=== PATIENT | male | born 1935 | race Caucasian/White ===

== ENCOUNTER → 2016-08-03 | Outpatient (CLI) | payer MEDICARE, OTHER | END | disposition home or self-care (01) | LOC: GMAH 10:40 | PROVIDERS: ATTEND Family Medicine | DX: I69.391 Dysphagia following cerebral infarction (principal) ==

== ENCOUNTER → 2016-11-22 | Outpatient (CLI) | payer MEDICARE, OTHER ==
--- NOTE | 2016-11-25 10:52 | CT ---
EXAM DESCRIPTION: Abdoment/Pelvis w/o Contrast CLINICAL HISTORY: 81 years, 81 years, Male, Male, LUQ ABDOMEN PAIN COMPARISON: June 27, 2007 TECHNIQUE: CT of the abdomen and pelvis is performed according to our non contrast protocol This exam was performed according to our departmental dose-optimization program, which includes automated exposure control, adjustment of the mA and/or kV according to patient size and/or use of iterative reconstruction technique. FINDINGS: The lung bases are clear without infiltrate or effusion or mass. No free abdominal air is noted. The unenhanced liver is grossly normal with a small normal spleen noted and atrophic pancreas without mass evident. The gallbladder is distended with small stones layering dependently and new from previous 2007 study. No ductal dilation is noted. No adrenal mass or enlargement is evident. The right kidney is normal in appearance with a small less than 1.5 cm benign cyst lower pole of the kidney, unchanged left kidney demonstrates larger but stable parapelvic cysts in the anterior renal hilum without mass or obstruction or hydronephrosis. Aortic calcification and tortuosity is present without aneurysm and the vena cava is unremarkable without retroperitoneal adenopathy. Gastrostomy tube is positioned in the gastric body and new from 2009 examination. The stomach and small bowel are normal in appearance and mild diverticulosis of the left colon is noted with moderate prostatic hypertrophy. A specific abnormality to explain the patient's left upper quadrant or left flank pain is not apparent. The bladder is incompletely distended and appears thick-walled without a distinct focal mass. No pelvic fluid collections are noted in the anterior abdominal wall is unremarkable Advanced degenerative changes at the lumbosacral junction at the L5-S1 disc space is present with milder changes noted elsewhere. No bony destructive changes seen. IMPRESSION: 1. Cholelithiasis without ductal dilatation, new from 2010 without acute inflammation. 2. Gastrostomy tube in place and mild diverticulosis of the left colon. 3. Simple cyst lower pole of the right kidney and a larger benign parapelvic cyst of the left kidney without obstruction or stone disease. 4. Degenerative disc disease L5-S1 5. Small contracted bladder that appears thick-walled but without distinct focal mass or filling defect. Prostatic hypertrophy noted. Electronically signed by: Elvis Leblanc MD 11/25/2016 10:52 AM CDT
== END | disposition home or self-care (01) ==
LOC: CT 10:17
PROVIDERS: ATTEND Surgery
DX: R10.12 Left upper quadrant pain (principal)

== ENCOUNTER 2017-05-03 05:15 | Emergency (ER) | payer MEDICARE, OTHER ==
--- NOTE | 2017-05-03 05:42 | ED.PDOC ---
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 reports he woke her earlier this morning with significant bleeding from his mouth. They attempted to get it to stop at home but were unsuccessful. Denies any trauma or injury but does report he has been having some pain in that area for the past several days. Timing/Duration: abrupt, this morning Severity: moderate EENT Location: mouth Prearrival Treatment: other - Swishing with Listerine, [place]agel and pressure Improving Factors: nothing Worsening Factors: nothing Associated Symptoms: denies symptoms Allergies/Adverse Reactions: Allergies Ampicillin Allergy (Verified 05/03/17 05:24) Cephalexin Allergy (Verified 05/03/17 05:24) Chlorpheniramine [From Naldecon] Allergy (Verified 05/03/17 05:24) Clindamycin Allergy (Verified 05/03/17 05:24) Doxycycline Allergy (Verified 05/03/17 05:24) Erythromycin [From Ilosone] Allergy (Verified 05/03/17 05:24) Iodine Allergy (Verified 05/03/17 05:24) Latex Allergy (Verified 05/03/17 05:24) Levofloxacin Allergy (Verified 05/03/17 05:24) Penicillins Allergy (Verified 05/03/17 05:24) Phenylephrine [From Naldecon] Allergy (Verified 05/03/17 05:24) Phenylpropanolamine [From Naldecon] Allergy (Verified 05/03/17 05:24) Phenyltoloxamine [From Naldecon] Allergy (Verified 05/03/17 05:24) Shellfish Allergy Allergy (Verified 05/03/17 05:24) Sulfa Antibiotics Allergy (Verified 05/03/17 05:24) Sulfamethizole Allergy (Verified 05/03/17 05:24) Review of Systems - Review of Systems Constitutional: States: no symptoms reported EENTM: States: see HPI, mouth pain Respiratory: States: no symptoms reported Cardiology: States: no symptoms reported Musculoskeletal: States: no symptoms reported Skin: States: no symptoms reported Neurological: States: no symptoms reported, pre-existing deficit Hematologic/Lymphatic: States: easy bleeding - On Eliquis All other Systems: No Change from Baseline Past Medical History (General) - Patient Medical History Hx Seizures: Yes Hx Stroke: Yes Hx Dementia: No Hx Cardiac Disorders: Yes - A-fib Hx Hypertension: Yes Hx Diabetes: No Hx Renal Disease: No Hx Cancer: No Hx Hepatitis C: No Hx MRSA: No - Vaccination History Hx Tetanus, Diphtheria Vaccination: No Hx Influenza Vaccination: No Hx Pneumococcal Vaccination: Yes Immunizations Up to Date: Yes - Social History Hx Tobacco Use: No Hx Alcohol Use: No - Activities of Daily Living Hospice Agency (if applicable):: None Family Medical History - Family History Mother Living Status: Father Living Status: Hx Family Congestive Heart Failure: Yes Physical Exam - Physical Exam General Appearance: Alert, Comfortable, No apparent distress, Well Developed, Well Groomed, Well Hydrated, Well Nourished Eye Exam: bilateral normal Throat Exam: other - Scab with minimal bleeding just behind middle lower teeth. Gum is tender and swollen. Neck: supple, normal inspection Cardiovascular/Respiratory: no respiratory distress Neurologic: alert, normal mood/affect Skin Exam: normal color, warm/dry Comments: Vital Signs 05/03/17 05:24 Pulse Rate [ 44 L Left Radial] Respiratory 18 Rate Blood Pressure 158/82 [Right Arm] O2 Sat by Pulse 95 Oximetry Progress - Progress Progress: 05/03/17 06:26 Gum continued to ooze and bleed:Lower inner gum was anesthetized with 1.5cc 1% Lidocaine with epi. Area of bleeding was cauterized with silver nitrate. Patient tolerated well. 05/03/17 06:48 Bleeding continues to be controlled. Will d/c home with instructions to keep scheduled follow up with PCP. No teeth brushing for 3 days Swish and spit warm salt water to help with healing. Departure - Departure Clinical Impression: Open wound of mouth without complication Qualifiers: Encounter type: initial encounter Qualified Code(s): S01.502A - Unspecified open wound of oral cavity, initial encounter Time of Disposition: 06:52 Disposition: Discharge to Home or Self Care Condition: Good Departure Forms: ED Discharge - Pt. Copy, Patient Portal Self Enrollment Instructions: DI for Mouth Pain Diet: resume usual diet Activity: increase activity as tolerated Referrals: Tres Rosario MD [Primary Care Provider] - 1-2 Days Additional Instructions: Swish and spit warm water several times daily to help with healing
[2017-05-03] MEDS ORDERED: LIDOCAINE 1% 10 ML VIAL INJ ONE (06:09)
[2017-05-03] MEDS ORDERED: LIDOCAINE 1% W/ EPINEPHRINE 20 ML VIAL INJ ONE (06:11)
[2017-05-03 07:15] VITALS: BP 142/76; TEMP 98.2; O2SAT 96
== END 2017-05-03 07:15 | disposition home or self-care (01) ==
LOC: ER 05:15
DX: S01.502A Unspecified open wound of oral cavity, initial encounter (principal); I48.91 Unspecified atrial fibrillation; I10 Essential (primary) hypertension; I69.928 Other speech and language deficits following unspecified cerebrovascular disease; Z88.2 Allergy status to sulfonamides; Z88.3 Allergy status to other anti-infective agents; Z91.040 Latex allergy status; Z91.013 Allergy to seafood

== ENCOUNTER 2018-01-08 06:52 | Emergency (ER) | payer MEDICARE, OTHER ==
[2018-01-08 07:05] VITALS: TEMP 97.5
--- NOTE | 2018-01-08 07:24 | ED.PDOC ---
History of Present Illness - General Chief Complaint: Abdominal Pain Stated Complaint: L lower abdominal discomfort Time Seen by Provider: 01/08/18 07:10 Information Source: patient, family Exam Limitations: no limitations - History of Present Illness Initial Comments: 5 D LLQ PAIN. INTERMITTENT. 12/ LAST NIGHT BUT NOT BAD THIS AM. HESITANCY AND DYSURIA LAST NIGHT. VOIDED THIS AM. POS FLATUS AND BM. H/O STROKE RESULTING IN NEEDING FEEDING TUBE. (CHRONIC DYSPHAGIA AND DYSARTHRIA BUT BUE AND BLE UNAFFECTED.) Abdominal Pain Onset Location: LLQ, periumbilical, generalized abdomen Pain Radiation: no radiation Quality: moderate, intermittent Timing/Duration: days Improving Factors: nothing Worsening Factors: nothing Associated Symptoms: denies symptoms Review of Systems - Review of Systems Constitutional: Denies: chills, diaphoresis, fever EENTM: States: no symptoms reported Respiratory: States: no symptoms reported Cardiology: States: no symptoms reported Gastrointestinal/Abdominal: States: abdominal pain. Denies: constipation, diarrhea, nausea, vomiting Genitourinary: States: dysuria. Denies: frequency, hematuria Musculoskeletal: States: no symptoms reported Skin: States: no symptoms reported Neurological: States: no symptoms reported Endocrine: States: no symptoms reported Hematologic/Lymphatic: States: no symptoms reported All other Systems: Reviewed and Negative Past Medical History (General) - Patient Medical History Hx Seizures: Yes Hx Stroke: Yes Hx Dementia: No Hx Cardiac Disorders: Yes Hx Congestive Heart Failure: No Hx Hypertension: Yes Hx Diabetes: No Hx Renal Disease: No Hx Cancer: No Hx Hepatitis C: No Hx MRSA: No - Vaccination History Hx Tetanus, Diphtheria Vaccination: No Hx Influenza Vaccination: Yes Hx Pneumococcal Vaccination: Yes Immunizations Up to Date: Yes - Social History Hx Tobacco Use: No Hx Alcohol Use: No Family Medical History - Family History Mother Living Status: Father Living Status: Hx Family Congestive Heart Failure: Yes Physical Exam - Physical Exam General Appearance: Alert, Well Groomed Eyes, Ears, Nose, Throat Exam: PERRL/EOMI, normal ENT inspection, pharynx normal Neck: full range of motion, supple Respiratory: chest non-tender, lungs clear, no respiratory distress Cardiovascular/Chest: normal peripheral pulses, regular rate, rhythm Peripheral Pulses: No deficit Gastrointestinal/Abdominal: normal bowel sounds, soft, no organomegaly, no pulsatile mass, other - NO G/R. TTP LLQ > L FLANK > SUPRAPUBIC > PERIUMBILICAL > R FLANK. Rectal Exam: deferred Back Exam: normal inspection, CVA tenderness (R), CVA tenderness (L) Extremity: normal range of motion, non-tender Neurologic: alert, normal mood/affect Skin Exam: normal color, warm/dry Lymphatic: no adenopathy Progress - Progress Progress: 01/08/18 09:27 CT neg acutely. Increased hepatomegaly but LFTs NL; outpt liver CT recommended. Stable pelvic cysts, BPH, DJD. CMP unremarkable. UA neg. CBC very mild anemia and mild thrombocytopenia. No surgical abdomen. No explanation for pt's pain. Could have been bladder distention from BPH (pt voided in ER) or intestinal gas pains. Departure - Departure Clinical Impression: Intermittent left lower quadrant abdominal pain, Anemia, mild, Thrombocytopenia Disposition: Discharge to Home or Self Care Condition: Good Departure Forms: ED Discharge - Pt. Copy, Patient Portal Self Enrollment Instructions: DI for Abdominal Pain-Adult Diet: resume usual diet Activity: increase activity as tolerated Referrals: Tres Rosario MD [Primary Care Provider] - 1-2 Weeks Additional Instructions: The cause of his pain is unclear. It could have been urinary buildup in the bladder from his enlarged prostate or intestinal gas pains from needing a feeding tube, for which you could try crushing Gas-X. The CT scan suggested a non-urgent outpatient liver CT for his enlarged liver so please discuss at your next follow-up with Dr. Rosario.
--- NOTE | 2018-01-08 08:47 | CT ---
EXAM DESCRIPTION: Abdomen and/Pelvis w/o Contrast: Computed Tomography. CLINICAL HISTORY: LLQ PAIN X 5 D COMPARISON: None. TECHNIQUE: Spiral-axial scans 5.0 mm intervals through the abdomen and pelvis without oral or IV contrast. Coronal and sagittal 2.0 mm reconstructions. Total Exam DLP: 721.11 mGy-cm. This exam was performed according to our departmental CT dose-optimization program which includes automated exposure control, adjustment of the mA and/or kV according to patient size and/or use of iterative reconstruction technique; to reduce radiation dose to as low as reasonably achievable (ALARA). FINDINGS: Lung bases and pleura: Unremarkable. Coronary artery calcification. Liver, stomach, spleen, and adrenal glands: Percutaneous gastric tube in the distal body. Long axis of the right lobe of the liver 20 cm. No focal lesions. Other organs are negative. Pancreas, Gallbladder, and Ducts: Gallbladder small partially obscured by artifact. Pancreas and ducts unremarkable. Kidneys and Ureters: 1.5 cm cyst lower pole right kidney. Prominent left renal pelvis and/or cysts. Mesentery: No stranding fascial thickening or or free air or ascites. Aorta: Atherosclerotic calcification of the abdominal aorta with mild ectasia extending into the common iliac arteries bilaterally. Small Bowel: Minimal gas and fluid but no significant air-fluid levels. Terminal Ileum/Cecum: Normal caliber. Appendix not seen. Small pericecal lymph nodes. Colon: Scattered fecal material throughout the colon with no distention. Minimal redundancy of the sigmoid colon with diverticula but no complications. Pelvic Organs: Prostate gland abutting the base of the bladder and the seminal vesicles multiple calcifications in the inferior gland. Transverse diameter of the gland is 5.9 x 4.3 cm. Bladder is slightly contracted with wall thickening, no radiodense stones. No fluid in the anterior peritoneal reflection. Spine and Bony Pelvis: Advanced spondylosis L5-S1 with canal and foraminal narrowing. Also in the lower thoracic spine. Bilateral hip joint space narrowing with subchondral sclerosis and cyst on the acetabula facets. Abdominal Wall/Back Soft Tissues: Diastases at the umbilicus but not containing bowel. IMPRESSION: 1. No peritoneal or retroperitoneal space mass or abnormal fluid accumulation. No fatty or fascial inflammatory changes. No free air. 2. Hepatomegaly has progressed since the prior study but no focal lesions. Correlate with liver function tests. Consider follow-up nonemergent liver CT scan triple phase technique and were sonography of the liver. No ascites. 3. Stable cyst lower right kidney and stable parapelvic cysts and prominent left renal pelvis. 4. Stable prostate enlargement impressing on the urinary bladder and seminal vesicles. Correlate with clinical history and serial serum PSA determinations. 5. Stable advanced spondylosis at L5-S1 with canal and foraminal narrowing. 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 6. Stable gastrostomy tube in the distal body of the stomach. Electronically signed by: Raymond León MD 01/08/2018 8:46 AM CDT
[2018-01-08 09:45] VITALS: BP 120/71; O2SAT 96
== END 2018-01-08 09:40 | disposition home or self-care (01) ==
LOC: ER 06:52
DX: R10.32 Left lower quadrant pain (principal); D64.9 Anemia, unspecified; D69.6 Thrombocytopenia, unspecified; I10 Essential (primary) hypertension; R16.0 Hepatomegaly, not elsewhere classified; I69.391 Dysphagia following cerebral infarction; I69.322 Dysarthria following cerebral infarction; R13.10 Dysphagia, unspecified; Z93.1 Gastrostomy status

== ENCOUNTER → 2018-04-09 | Outpatient (CLI) | payer MEDICARE, OTHER | LOC: GMAH 11:40 | PROVIDERS: ATTEND Family Medicine | DX: N30.00 Acute cystitis without hematuria (principal) ==

== ENCOUNTER 2018-12-21 | Emergency (ER) | payer MEDICARE, OTHER ==
--- NOTE | 2018-12-21 15:56 | ED.PDOC ---
History of Present Illness - General Chief Complaint: General Stated Complaint: Pulled out G-tube accidentally Time Seen by Provider: 12/21/18 15:31 Source: family - History of Present Illness Initial Comments: Hollis Root 83 y/o male brought by family to ER after PEG tube came out due to balloon anchor deflated.Has history of CVA Timing/Duration: 1-3 hours Severity: mild Improving Factors: nothing Worsening Factors: nothing Associated Symptoms: denies symptoms Allergies/Adverse Reactions: Allergies Ampicillin Allergy (Verified 05/03/17 05:24) Cephalexin Allergy (Verified 05/03/17 05:24) Chlorpheniramine [From Naldecon] Allergy (Verified 05/03/17 05:24) Clindamycin Allergy (Verified 05/03/17 05:24) Doxycycline Allergy (Verified 05/03/17 05:24) Erythromycin [From Ilosone] Allergy (Verified 05/03/17 05:24) Iodine Allergy (Verified 05/03/17 05:24) Latex Allergy (Verified 05/03/17 05:24) Levofloxacin Allergy (Verified 05/03/17 05:24) Penicillins Allergy (Verified 05/03/17 05:24) Phenylephrine [From Naldecon] Allergy (Verified 05/03/17 05:24) Phenylpropanolamine [From Naldecon] Allergy (Verified 05/03/17 05:24) Phenyltoloxamine [From Naldecon] Allergy (Verified 05/03/17 05:24) Shellfish Allergy Allergy (Verified 05/03/17 05:24) Sulfa Antibiotics Allergy (Verified 05/03/17 05:24) Sulfamethizole Allergy (Verified 05/03/17 05:24) Home Medications: Ambulatory Orders Alum [facility] Mag Hydrox-Simethicone [Maalox Max] 1 ilir GT Q6HR 11/20/18 Amlodipine Besylate 5 mg GT DAILY 11/20/18 Aspirin [Aspirin Adult Low Dose] 81 mg GT BEDTIME 11/20/18 Donepezil HCl [Aricept] 5 mg GT BEDTIME 11/20/18 Hyoscyamine Sulfate [Levsin] 0.125 mg PO QID PRN #15 tab 11/20/18 Levetiracetam [Keppra] 1,000 mg GT Q12HR 11/20/18 Lidocaine (Anorectal) [Lidocaine] 1 applic TOP DAILY 11/20/18 Losartan Potassium 100 mg GT DAILY 11/20/18 Metoprolol Tartrate [Lopressor] 100 mg GT BID 11/20/18 Pantoprazole Suspension [Protonix] 40 mg PO ACBK #20 pckt 11/20/18 Phenobarbital 64.8 mg GT BEDTIME 11/20/18 Tramadol HCl [Ultram] 50 mg GT Q6HR PRN 11/20/18 traZODone HCL [Desyrel] 50 mg GT PRN PRN 11/20/18 Review of Systems - Review of Systems Skin: States: see HPI All other Systems: Reviewed and Negative, No Change from Baseline Past Medical History (General) - Patient Medical History Hx Seizures: Yes Hx Stroke: Yes Hx Dementia: No Hx Cardiac Disorders: Yes Hx Congestive Heart Failure: No Hx Hypertension: Yes Hx Diabetes: No Hx Renal Disease: No Hx Cancer: No Hx Hepatitis C: No Hx MRSA: No Surgical History: other - PEG - Vaccination History Hx Tetanus, Diphtheria Vaccination: No Hx Influenza Vaccination: Yes Hx Pneumococcal Vaccination: Yes - Social History Hx Tobacco Use: No Hx Alcohol Use: No Hx Substance Use: No Hx Substance Use Treatment: No Hx Depression: No Family Medical History - Family History Mother Living Status: Father Living Status: Hx Family Congestive Heart Failure: Yes Physical Exam - Physical Exam General Appearance: Alert, Comfortable Eye Exam: bilateral normal Ears, Nose, Throat: hearing grossly normal Neck: normal inspection Respiratory: normal breath sounds Cardiovascular/Chest: regular rate, rhythm - monitor Peripheral Pulses: radial,right: 2+, radial,left: 2+ Gastrointestinal/Abdominal: other - PEG tube came out noted bulb deflated Back Exam: normal inspection Extremity: no pedal edema Neurologic: other - residula deficits Skin Exam: normal color Progress - Progress Progress: 12/21/18 15:58 Last Vital Signs Temp 97.1 F L 12/21/18 15:05 Pulse 85 12/21/18 15:05 Resp 20 12/21/18 15:05 BP 120/65 12/21/18 15:05 Pulse Ox 96 12/21/18 15:05 12/21/18 15:58 PEG TUBE REPLACED NOTED FLOW OF GASTRIC CONTENTS AFTER INSERTION INFLATED BULB 10 cc air Departure - Departure Clinical Impression: PEG (percutaneous endoscopic gastrostomy) adjustment/replacement/removal, Malfunction of percutaneous endoscopic gastrostomy (PEG) tube Time of Disposition: 16:01 Disposition: Discharge to Home or Self Care Departure Forms: ED Discharge - Pt. Copy, Patient Portal Self Enrollment Referrals: Tres Rosario MD [Primary Care Provider] - 1-2 Weeks Home Medications: Ambulatory Orders Alum & Mag Hydrox-Simethicone [Maalox Max] 1 ilir GT Q6HR 11/20/18 Amlodipine Besylate 5 mg GT DAILY 11/20/18 Aspirin [Aspirin Adult Low Dose] 81 mg GT BEDTIME 11/20/18 Donepezil HCl [Aricept] 5 mg GT BEDTIME 11/20/18 Hyoscyamine Sulfate [Levsin] 0.125 mg PO QID PRN #15 tab 11/20/18 Levetiracetam [Keppra] 1,000 mg GT Q12HR 11/20/18 Lidocaine (Anorectal) [Lidocaine] 1 applic TOP DAILY 11/20/18 Losartan Potassium 100 mg GT DAILY 11/20/18 Metoprolol Tartrate [Lopressor] 100 mg GT BID 11/20/18 Pantoprazole Suspension [Protonix] 40 mg PO ACBK #20 pckt 11/20/18 Phenobarbital 64.8 mg GT BEDTIME 11/20/18 Tramadol HCl [Ultram] 50 mg GT Q6HR PRN 11/20/18 traZODone HCL [Desyrel] 50 mg GT PRN PRN 11/20/18 Additional Instructions: Returnn to ER as needed
== END 2018-12-21 16:16 | disposition home or self-care (01) ==

== ENCOUNTER → 2019-02-05 | Outpatient (CLI) | payer MEDICARE, OTHER | LOC: GMA MATASK 17:00 | PROVIDERS: ATTEND Family Medicine | DX: I10 Essential (primary) hypertension (principal); Z12.5 Encounter for screening for malignant neoplasm of prostate | CPT/HCPCS: 84443; 84550; G0103 ==